=== PATIENT | male | born 1980 | race Caucasian/White ===

== ENCOUNTER 2018-06-03 14:37 | Emergency (ER) | payer OTHER ==
[~2018-06-03] VITALS: Ht 177.8 cm; Wt 111.1 kg
[2018-06-03 14:50] VITALS: BP 117/83
== END 2018-06-03 16:35 | disposition home or self-care (01) ==
LOC: ER 14:37
DX: S52.134A Nondisplaced fracture of neck of right radius, initial encounter for closed fracture (principal); W18.39XA Other fall on same level, initial encounter; Y93.89 Activity, other specified; Y99.8 Other external cause status; Y92.89 Other specified places as the place of occurrence of the external cause
CPT/HCPCS: 73080